=== PATIENT | male | born 1955 | race Caucasian/White ===

== ENCOUNTER 2022-01-10 15:04 | Emergency (ER) | payer OTHER ==
[2022-01-10 15:40] VITALS: BP 171/94; PULSE 106; RESP 20; TEMP 97.5; BMI 30.7
[2022-01-10] MEDS ORDERED: ACETAMINOPHEN 1000 MG/100 ML BAG IVPB ONE (16:57)
[2022-01-10] MEDS ORDERED: ACETAMINOPHEN 325 MG TABLET (FP) PO ONE (17:04)
[2022-01-10] MEDS ORDERED: metFORMIN HCL 500 MG TABLET (FP) PO ONE (17:28)
[2022-01-10] MEDS ORDERED: ACETAMINOPHEN 325 MG TABLET (FP) ONE (17:32)
== END 2022-01-10 19:21 | disposition home or self-care (01) ==
LOC: JER 15:04
DX: M54.2 Cervicalgia (principal); M54.50 Low back pain, unspecified; V49.40XA Driver injured in collision with unspecified motor vehicles in traffic accident, initial encounter
CPT/HCPCS: 70450-TC; 71045-TC-FY; 72100-TC-FY; 72125-TC; 82962; 99285-25